=== PATIENT | female | born 1945 | race Caucasian/White ===

== ENCOUNTER 2016-09-26 18:04 | Inpatient (IN) ==
[2016-09-26] MEDS ORDERED: 0.9 % SODIUM CHLORIDE 1,000 ML IV ONE ×3 (18:28→20:55)
[2016-09-26] MEDS ORDERED: ACETAMINOPHEN 325 MG TABLET PO ONE (18:28)
--- NOTE | 2016-09-26 18:31 | Emergency Department Note ---
Fever HPI - General Chief Complaint: Fever Stated Complaint: fever, weakness Time Seen by Provider: 09/26/16 18:26 Source: patient, family Mode of arrival: ambulatory - History of Present Illness HPI Narrative: This previously healthy female developed some fever and chills short while ago after eating some carrot cake. She has no specific symptoms other than fever and chills. She denies cough bladder symptoms or abdominal pain. No nausea or diarrhea. MD complaint: fever, weakness Onset (ago): minute(s) Temperature Source: oral - Related Data Home Medications Medication Instructions Recorded Confirmed No Known Home Meds [No Known Home 09/26/16 09/26/16 Meds] Allergies Allergy/AdvReac Type Severity Reaction Status Date / Time Penicillins Allergy Verified 09/26/16 18:25 Review of Systems Constitutional: Reports: fever, chills Eyes: Denies: eye pain ENT ED: Denies: ear pain, throat pain Cardiovascular: Denies: chest pain Respiratory: Denies: cough, dyspnea Gastrointestinal: Denies: abdominal pain, nausea, vomiting, diarrhea Genitourinary: Denies: urgency, dysuria, frequency Musculoskeletal: Denies: back pain Integumentary: Denies: rash Fever PMH - Past Medical History Medical history: Reports: no medical history Physical Exam - General Limitations: no limitations General appearance: alert, in no apparent distress - Head Head exam: atraumatic, normocephalic - Eye Eye exam: Present: normal appearance - ENT ENT exam: normal exam - Neck Neck exam: Present: normal inspection - Chest Chest inspection: Present: normal inspection - Respiratory Respiratory exam: Present: other (scattered rhonchi) - Cardiovascular Cardiovascular exam: Present: regular rate, normal rhythm, normal heart sounds - Abdominal Exam Abdominal exam: Present: soft. Absent: distention, tenderness - Neurological Exam Neurological exam: Present: alert - Psychiatric Psychiatric exam: Present: normal affect, normal mood - Skin Skin exam: Present: warm, dry, intact Course Vital Signs Temperature 104.1 F H 09/26/16 18:05 Pulse Rate 104 H 09/26/16 18:05 Respiratory Rate 20 09/26/16 18:05 Pulse Oximetry (%) 95 09/26/16 18:05 Temperature 100.5 F H 09/26/16 20:48 Pulse Rate 88 09/26/16 19:52 Respiratory Rate 21 09/26/16 19:52 Blood Pressure 130/74 09/26/16 19:52 Pulse Oximetry (%) 93 09/26/16 19:52 Fever - MDM Narrative Medical decision making narrative: The patient received fluid we did blood cultures and she got Levaquin and Rocephin. With her potassium being 2.7 we will go ahead and admit her to the ICU for IV potassium and further treatment of her pneumonia. - Lab Data Lab results reviewed: Yes I reviewed the patient's lab results. Result diagrams: 09/26/16 18:28 09/26/16 20:10 Lab Results 09/26/16 09/26/16 09/26/16 Range/Units 18:28 18:28 18:40 WBC 16.2 H (4.5-11.0) K/mcL RBC 4.29 (4.00-5.20) M/mcL Hgb 13.0 (12.0-15.0) g/dL Hct 39.5 (36.0-48.0) % MCV 92.0 (80.0-100.0) fL MCH 30.3 (26.0-34.0) pg MCHC 33.0 (31.0-36.0) g/dL RDW 13.3 (11.5-14.5) % Plt Count 244 (140-440) K/mcL MPV 7.3 L (7.4-10.4) fL Gran % 91.0 H (38.0-78.0) % Lymph % (Auto) 3.2 L (15.5-49.0) % [place] % (Auto) 5.7 (1.0-12.0) % Eos % (Auto) 0 (0.0-7.0) % Baso % (Auto) 0.1 (0.0-2.0) % Gran # 14.7 H (1.8-8.0) K/mcL Lymph # 0.5 L (1.5-4.8) K/mcL [place] # 0.9 (0.1-0.9) K/mcL Eos # 0 (0.0-0.7) K/mcL Baso # 0 (0.0-0.3) K/mcL VBG Lactic Acid 0.9 (0.5-2.2) mmol/L Sodium Not Reportable Potassium Not Reportable Chloride Not Reportable Carbon Dioxide Not Reportable Anion Gap Not Reportable BUN Not Reportable Creatinine Not Reportable GFR Calculation Not Reportable Glucose TNP Calcium Not Reportable Total Bilirubin Not Reportable AST Not Reportable ALT Not Reportable Alkaline Phosphatase Not Reportable Total Protein Not Reportable Albumin Not Reportable Globulin Not Reportable Albumin/Globulin Ratio Not Reportable Urine Color Urine Appearance Urine pH (5.0-9.0) Ur Specific [place] (1.000-1.035) Urine Protein (NEG) mg/dL Urine Glucose (UA) (NEG) mg/dL Urine Ketones (NEG) mg/dL Urine Occult Blood (<0.03) mg/dL Urine Nitrate (NEG) Urine Bilirubin (NEG) mg/dL Urine Urobilinogen (NEG) mg/dL Ur Leukocyte Esterase (NEG) /uL Urine RBC (0-1) /hpf Urine WBC (0-4) /hpf Ur Squamous Epith Cells (0-4) /hpf Urine Bacteria (0) /hpf Urine Mucus (0) /hpf Ur Culture Indicated? 09/26/16 09/26/16 Range/Units 18:58 20:10 WBC (4.5-11.0) K/mcL RBC (4.00-5.20) M/mcL Hgb (12.0-15.0) g/dL Hct (36.0-48.0) % MCV (80.0-100.0) fL MCH (26.0-34.0) pg MCHC (31.0-36.0) g/dL RDW (11.5-14.5) % Plt Count (140-440) K/mcL MPV (7.4-10.4) fL Gran % (38.0-78.0) % Lymph % (Auto) (15.5-49.0) % [place] % (Auto) (1.0-12.0) % Eos % (Auto) (0.0-7.0) % Baso % (Auto) (0.0-2.0) % Gran # (1.8-8.0) K/mcL Lymph # (1.5-4.8) K/mcL [place] # (0.1-0.9) K/mcL Eos # (0.0-0.7) K/mcL Baso # (0.0-0.3) K/mcL VBG Lactic Acid (0.5-2.2) mmol/L Sodium 139 Potassium 2.7 L* Chloride 103 Carbon Dioxide 21 L Anion Gap 15.0 BUN 8 Creatinine 0.7 GFR Calculation 87 Glucose 107 H Calcium 7.5 L Total Bilirubin 0.5 AST 15 ALT 11 Alkaline Phosphatase 43 Total Protein 5.5 L Albumin 3.6 Globulin 1.9 L Albumin/Globulin Ratio 1.9 Urine Color Yellow Urine Appearance Clear Urine pH 7.0 (5.0-9.0) Ur Specific [place] 1.011 (1.000-1.035) Urine Protein Neg (NEG) mg/dL Urine Glucose (UA) Negative (NEG) mg/dL Urine Ketones 20 A (NEG) mg/dL Urine Occult Blood 0.03 A (<0.03) mg/dL Urine Nitrate Neg (NEG) Urine Bilirubin Neg (NEG) mg/dL Urine Urobilinogen Neg (NEG) mg/dL Ur Leukocyte Esterase 250 A (NEG) /uL Urine RBC 6 H (0-1) /hpf Urine WBC 5 H (0-4) /hpf Ur Squamous Epith Cells 0 (0-4) /hpf Urine Bacteria 0 (0) /hpf Urine Mucus Few (0) /hpf Ur Culture Indicated? Yes - Radiology Data Radiology results reviewed: Yes I reviewed the patient's radiology results. ( right lower lobe pneumonia) Disposition Clinical Impression: Community acquired pneumonia Disposition: Home, Self-Care Condition: Good Referrals: Gabe Rodriguez MD [Primary Care Provider] - Time of Disposition: 21:24
[2016-09-26 19:36] LABS: Basophils # (Auto) 0 K/mcL (0.0-0.3); Basophils % (Auto) 0.1 % (0.0-2.0); Eosinophils # (Auto) 0 K/mcL (0.0-0.7); Eosinophils % (Auto) 0 % (0.0-7.0); Lymphocytes # (Auto) 0.5 K/mcL (1.5-4.8); Lymphocytes % (Auto) 3.2 % (15.5-49.0); Mean Corpuscular Hemoglobin 30.3 pg (26.0-34.0); Monocytes # (Auto) 0.9 K/mcL (0.1-0.9); Monocytes % (Auto) 5.7 % (1.0-12.0); Platelet Count 244 K/mcL (140-440); RBC 4.29 M/mcL (4.00-5.20); Red Cell Distribution Width 13.3 % (11.5-14.5)
[2016-09-26 19:44] LABS: Appearance,Urine CLEAR; Bacteria,Urine 0 /hpf (0); Bilirubin,Urine NEG (NEG); Color,Urine YELLOW; Glucose,Urine (UA) NEGATIVE (NEG); Leukocyte Esterase,Urine 250 /uL (NEG); Mucus,Urine FEW /hpf (0); Nitrate,Urine NEG (NEG); Protein,Urine NEG (NEG); Specific Gravity,Urine 1.011 (1.000-1.035); Urine Blood 0.03 mg/dL (<0.03); Urine RBC 6 /hpf (0-1); Urine Squamous Epithelial Cell 0 /hpf (0-4); Urine WBC 5 /hpf (0-4); Urobilinogen,Urine NEG (NEG)
--- NOTE | 2016-09-26 20:48 | XRay Report ---
HISTORY: Reason for Exam:fever FINDINGS: There is a small alveolar infiltrate medially in the right lung base. This is a new finding since 07/02/14. The left lung is clear. There is no pleural effusion or evidence of adenopathy. The heart size is normal. IMPRESSION: Mild right lower lobe pneumonia Interpreted and Authenticated by: Jet Watson 09/26/16
[2016-09-26] MEDS ORDERED: LEVOFLOXACIN 500 MG/100 ML BAG IV ONE (20:49)
[2016-09-26 21:12] LABS: ALT/SGPT 11 U/l (0-40); Albumin 3.6 gm/dL (3.2-5.2); Albumin/Globulin Ratio 1.9 (1.0-2.3); Alkaline Phosphatase 43 U/L (39-117); Blood Urea Nitrogen 8 mg/dl (8-23)
[2016-09-26] MEDS ORDERED: cefTRIAXone 1 GM in DEXTROSE 5% IN WATER 50 ML IV ONE (21:12)
[2016-09-26] MEDS ORDERED: CEPHALEXIN 250 MG CAPSULE PO ONE (21:37)
[2016-09-26] MEDS ORDERED: CEPHALEXIN (PP) 250 MG CAPSULE (#4) PO SCH (21:45)
[2016-09-26] MEDS ORDERED: ACETAMINOPHEN 325 MG TABLET PO PRN ×2 (22:16→22:26)
[2016-09-26] MEDS ORDERED: oxyCODONE/APAP 5/325MG TABLET PO PRN ×2 (22:16→22:26)
[2016-09-26] MEDS ORDERED: ONDANSETRON 4 MG/2 ML VIAL IV PRN ×2 (22:16→22:26)
[2016-09-26] MEDS ORDERED: NALOXONE HCL 0.4 MG/ML VIAL IV PRN ×2 (22:16→22:26)
[2016-09-26] MEDS ORDERED: POTASSIUM CHLORIDE 20 MEQ PACKET PO ONE ×2 (22:25→22:26)
[2016-09-26] MEDS ORDERED: POTASSIUM CHLORIDE 40 MEQ in DEXTROSE 5% IN WATER 500 ML IV ONE (22:26)
[2016-09-26] MEDS ORDERED: 0.9 % SODIUM CHLORIDE 1,000 ML IV SCH (22:30)
[2016-09-26] MEDS ORDERED: AZITHROMYCIN 500 MG in DEXTROSE 5% IN WATER 250 ML IV SCH ×2 (22:30)
[2016-09-26] MEDS ORDERED: FAMOTIDINE/PF 20 MG/2 ML VIAL IV SCH (22:30)
[2016-09-26] MEDS ORDERED: cefTRIAXone 1 GM in DEXTROSE 5% IN WATER 50 ML IV SCH ×2 (22:30)
[2016-09-26] MEDS: 0.9 % SODIUM CHLORIDE 1,000 ML IV SCH (23:11)
[2016-09-26] MEDS ORDERED: POTASSIUM CHLORIDE 20 MEQ/10 ML VIAL IV ONE (23:33)
[2016-09-26] MEDS ORDERED: MAGNESIUM SULFATE 2 GM/50 ML BAG IV ONE (23:36)
--- NOTE | 2016-09-26 23:41 | Internal Med History&Physical ---
Medical - H&P: HPI Patient information: Note initiated : 09/26/16 at 11:37 pm Service Date, if different from initiated Date: [] Patient: Abby Guevara 71 y/o F admitted on 09/26/16 for fever, weakness. Chief Complaint: [] History of present illness: Ms. Guevara is a 71 year old female who presents to the ER with complaints of fever x 1 day. Patient reports being in her usual state of health, she was at the [facility], when she had a couple of bouts of cough, and developed fever with chills and weakness, and some shortness of breath. She was sick to her stomach.. She was not feeling well so she went home but her condition did not seem to improve, she rested for some time and her brought her to the ER for further evaluation. The patient denies any sick contacts in family but does have interactions with kids, notes has had her Pneumovax. In the ER she was febrile to temp of 104, Her WBC count was elevated, her K was noted to be low at 2.7, calcium 7.5, X ray chest shows right lower lobe pneumonia. She was admitted to the hospital for management of pna/ hypokalemia/ sepsis/ Review of systems: CONSTITUTIONAL: No weight loss, Present, fever chills and fatigue. HEENT: Eyes: No visual loss, blurred vision, double vision or yellow sclerae. Ears, Nose, Throat: No hearing loss, sneezing, congestion, runny nose or sore throat. SKIN: No rash or itching. CARDIOVASCULAR: No chest pain, chest pressure or chest discomfort. No palpitations or edema. RESPIRATORY: Dry cough present, mild shortness of breath present. GASTROINTESTINAL: Present nausea, No vomiting or diarrhea or constipation. No abdominal pain or blood in stools No Sammie. GENITOURINARY: Denies Burning on urination. Blood in urine, or foul smelling urine NEUROLOGICAL: No headache, dizziness, syncope, paralysis, tremors, numbness or tingling in the extremities. No change in bowel or bladder control. MUSCULOSKELETAL: No muscle, back pain, joint pain or stiffness. HEMATOLOGIC: No bleeding or bruising. No enlarged nodes PSYCHIATRIC: No depression or anxiety. ENDOCRINOLOGIC: No reports of sweating, cold or heat intolerance. No polyuria or polydipsia. ALLERGIES: No hives, eczema or rhinitis. Skin: No rash, no jaundice, cyanosis or pallor. Medical - H&P: PMH Medical history: Medical History Community acquired pneumonia (Acute) Benign essential hypertension (Chronic) Contusion (Chronic) Surgical history: Past Surgical History CTS surgery right hand Family history: reviewed and not pertinent Social history: non smoker, no etoh, no drugs lives with . Medical - H&P: Meds Home Medications Medication Instructions Recorded Confirmed Type No Known Home Meds [No Known Home 09/26/16 09/26/16 History Meds] Allergies Allergy/AdvReac Type Severity Reaction Status Date / Time Penicillins Allergy Verified 09/26/16 18:25 Medical - H&P: Exam - Constitutional Vitals: Temp Pulse Resp BP Pulse Ox 99.3 F 88 12 122/80 95 09/26/16 22:28 09/26/16 19:52 09/26/16 22:28 09/26/16 22:28 09/26/16 22:28 Exam: GENERAL: The patient is a well-developed, well-nourished in no apparent distress. Is alert and oriented x3. VITAL SIGNS: Reviewed and as noted elsewhere. HEENT: Head is normocephalic and atraumatic. Extraocular muscles are intact. Pupils are equal, round, and reactive to light. Nares appeared normal. Mouth appears any without lesions. Mucous membranes are dry NECK: Normal to inspection, Supple, No lymphadenopathy or thyromegaly. LUNGS: Air entry equal on both sides, no wheezing,, crackles noted on the right lung base. HEART: Regular rate and rhythm normal, S1 and S2 heard, no Gallop, S3 or Rub Noted, No Gross murmur heard. ABDOMEN: Soft, nontender, and nondistended. Positive bowel sounds. No hepatosplenomegaly was noted. EXTREMITIES: No cyanosis, clubbing, rash, lesions or edema. NEUROLOGIC: Cranial nerves II through XII are grossly intact. Motor and Sensory System Grossly Intact PSYCHIATRIC: Normal affect, Normal Mood. Appropriate Behavior. SKIN: No ulceration or wounds noted, No jaundice, No rash noted. Medical - H&P: Reslt - Labs CBC & Chem 7: 09/26/16 18:28 09/26/16 20:10 Medical - H&P: A/P - Narrative A/P Narrative: A/P Community Acquired Pneumonia: Treat with IV rocephin/ zithromax, blood cultures done, does not have cough with sputum for sputum cultures. Sepsis: Elevated wbc, pna, tachycardia, fever, Pt treated aggressively with IV ABX and IV fluids, lactate is normal on presentation. monitor Hypokalemia: Etiology: she takes no meds no supplements, no decline in oral intake, no diarrhea reported. Will replace for now, check urine K level. Hypomagnesemia: Noted on labs 1.5, replace for now. Low Calcium: monitor for now on tele. Await ekg, check vit D levels. Multiple electrolyte abnormalities could be due to sepsis, but could also be some malabsorbtion state. monitor for now. DVT : Hep sq Diet Regular Code full code.
[2016-09-27] MEDS: FAMOTIDINE/PF 20 MG/2 ML VIAL IV SCH ×3 (00:31→21:37)
[2016-09-27] MEDS ORDERED: MAGNESIUM SULFATE 2 GM/50 ML BAG IV ONE (00:34)
[2016-09-27 05:10] LABS: Basophils # (Auto) 0 K/mcL (0.0-0.3); Basophils % (Auto) 0.1 % (0.0-2.0); Eosinophils # (Auto) 0 K/mcL (0.0-0.7); Eosinophils % (Auto) 0 % (0.0-7.0); Granulocytes % (Auto) 84.7 % (38.0-78.0); Lymphocytes # (Auto) 1.4 K/mcL (1.5-4.8); Lymphocytes % (Auto) 9.5 % (15.5-49.0); Mean Cell Volume 92.3 fL (80.0-100.0); Mean Corpuscular HGB Conc 33.3 g/dL (31.0-36.0); Mean Corpuscular Hemoglobin 30.8 pg (26.0-34.0); Monocytes # (Auto) 0.9 K/mcL (0.1-0.9); Monocytes % (Auto) 5.7 % (1.0-12.0); Platelet Count 175 K/mcL (140-440); Red Cell Distribution Width 13.6 % (11.5-14.5)
[2016-09-27 05:26] LABS: ALT/SGPT 11 U/l (0-40); Albumin 3.1 gm/dL (3.2-5.2); Albumin/Globulin Ratio 1.5 (1.0-2.3); Alkaline Phosphatase 41 U/L (39-117); Bilirubin,Direct < 0.2 mg/dL (0.0-0.3); Blood Urea Nitrogen 7 mg/dl (8-23); Gamma Glutamyl Transpeptidase 9 U/L (5-36); Magnesium 2.6 mg/dL (1.6-2.5); Uric Acid 1.7 mg/dL (2.5-8.0)
[2016-09-27 05:41] LABS: Vitamin D 25 Hydroxy 21.22 ng/mL (>=30)
[2016-09-27 08:48] LABS: ALT/SGPT 10 U/l (0-40); Albumin 3.1 gm/dL (3.2-5.2); Albumin/Globulin Ratio 1.4 (1.0-2.3); Alkaline Phosphatase 42 U/L (39-117); Bilirubin,Direct < 0.2 mg/dL (0.0-0.3); Blood Urea Nitrogen 6 mg/dl (8-23); Gamma Glutamyl Transpeptidase 10 U/L (5-36); Magnesium 2.2 mg/dL (1.6-2.5); Uric Acid 1.6 mg/dL (2.5-8.0)
[2016-09-27] MEDS ORDERED: HEPARIN 5,000 UNIT/ML VIAL SQ SCH ×2 (09:00)
[2016-09-27] MEDS ORDERED: NEUTRA PHOS 1 PACKET PO SCH (09:15)
[2016-09-27] MEDS ORDERED: 0.9 % SODIUM CHLORIDE 1,000 ML IV SCH (09:25)
[2016-09-27] MEDS ORDERED: ONDANSETRON 4 MG/2 ML VIAL IV PRN (09:25)
[2016-09-27] MEDS ORDERED: ACETAMINOPHEN 325 MG TABLET PO PRN (09:25)
[2016-09-27] MEDS ORDERED: oxyCODONE/APAP 5/325MG TABLET PO PRN (09:25)
[2016-09-27] MEDS ORDERED: NALOXONE HCL 0.4 MG/ML VIAL IV PRN (09:25)
[2016-09-27] MEDS: NEUTRA PHOS 1 PACKET PO SCH ×2 (10:17→21:37)
[2016-09-27] MEDS: 0.9 % SODIUM CHLORIDE 1,000 ML IV SCH (11:29)
--- NOTE | 2016-09-27 12:58 | Internal Med Progress Note ---
Medical - PN: Subj Patient information: Note initiated : 09/27/16 at 12:55 pm Service Date, if different from initiated Date: [] Patient: Abby Guevara 71 y/o F admitted on 09/26/16 for fever, weakness. Chief Complaint: [] Interval history: Ms. Guevara is a 71 year old female who presents to the ER with complaints of fever x 1 day. Patient reports being in her usual state of health, she was at the [facility], when she had a couple of bouts of cough, and developed fever with chills and weakness, and some shortness of breath. She was sick to her stomach.. She was not feeling well so she went home but her condition did not seem to improve, she rested for some time and her brought her to the ER for further evaluation. The patient denies any sick contacts in family but does have interactions with kids, notes has had her Pneumovax. In the ER she was febrile to temp of 104, Her WBC count was elevated, her K was noted to be low at 2.7, calcium 7.5, X ray chest shows right lower lobe pneumonia. She was admitted to the hospital for management of pna/ hypokalemia/ sepsis/ 09/27: Pt seen examined, sitting in chair, doing much better, no acute overnight events, she notes desire to be discharged, explained need to stay in the hospital, pt agreed to stay. patients lab work reviewed, leucocytosis improving, electrolyte abormalities resolving. Low phos noted replaced Pt notes she did not eat or drink well due to being busy organizing the [facility], and that is likely the reason for her problems. raheem d/c vern, d/c tele and xfer to regular floor microbiology is still pending. Pertinent ROS: Denies headache, dizziness Denies chest pain, palpitations Denies cough or shortness of breath Denies abdominal pain, nausea or vomiting. - Constitutional Vitals: Vital Signs Temp Pulse Resp BP Pulse Ox 98.2 F 79 20 122/82 96 09/27/16 12:00 09/27/16 07:55 09/27/16 12:00 09/27/16 12:00 09/27/16 12:00 Period Temp Pulse Resp BP Sys/Maya Pulse Ox Last 24 Hr 98.2 F-99.4 F 67-82 12-20 116-130/62-82 95-98 Intake and Output 09/26/16 09/27/16 09/27/16 21:59 05:59 13:59 Intake Total 570 / 1670 360 / 360 Output Total 1200 / 1200 1950 / 1950 Balance -630 / 470 -1590 / -1590 Intake & Output: Intake & Output 09/26/16 09/27/16 09/27/16 21:59 05:59 13:59 Intake Total 570 / 1670 360 / 360 Output Total 1200 / 1200 1950 / 1950 Balance -630 / 470 -1590 / -1590 Intake: IV 250 / 250 Zithromax 500 mg In 250 / 250 Dextrose 5% in Water 250 ml @ 250 mls/hr IV Q24H [facility] Rx#:[id number] Oral 320 / 320 360 / 360 Output: Urine Catheter Amount 1200 / 1200 1450 / 1450 Void Amount 500 / 500 Other: Meal Lunch Percent of Meal Consumed 100% Feeding Ability Independent # Voids 1 # Bowel Movements 1 Exam: Constitutional; Afebrile, cooperative, alert, not in distress. Eyes- No icterus, , No periorbital swelling Ears- Ext ear normal, hearing normal to conversation. Neck- Midline trachea, supple Respiratory system: Air Entry equal on both sides, No wheezing, no rhonchi. right lower lobe mild crackles noted. CVS- Rate rhythm regular, S1,S2 heard, no gallop, no rub. Abdomen- Soft nontender abdomen, no organomegaly, no tenderness, no guarding or rigidity, WIRE BENDER HAND- AOOx3, moving all extremities, no gross focal deficit noted. Medical - PN: Obj Da - Labs CBC & Chem 7: 09/27/16 03:29 09/27/16 07:32 Labs: Abnormal Lab Results 09/27/16 09/27/16 09/27/16 07:32 03:29 03:29 WBC RBC Hgb Hct MPV Gran % Lymph % (Auto) Gran # Lymph # Carbon Dioxide 21 L BUN 6 L 7 L Glucose 168 H Uric Acid 1.6 L 1.7 L Calcium 7.8 L 7.8 L Phosphorus 1.3 L 2.3 L Magnesium 2.6 H Total Protein 5.3 L 5.2 L Albumin 3.1 L 3.1 L Globulin 2.1 L 25-OH Vitamin D Total 21.22 L 09/27/16 09/26/16 03:29 22:36 WBC 15.1 H RBC 3.60 L Hgb 11.1 L Hct 33.2 L MPV 7.1 L Gran % 84.7 H Lymph % (Auto) 9.5 L Gran # 12.8 H Lymph # 1.4 L Carbon Dioxide BUN Glucose Uric Acid Calcium Phosphorus Magnesium 1.5 L Total Protein Albumin Globulin 25-OH Vitamin D Total Meds: Medications Acetaminophen (Tylenol) 650 mg PO Q6HP PRN PRN Reason: PAIN/FEVER > 101 Famotidine (Pepcid) 20 mg IV Q12 [facility] Heparin Sodium (Porcine) (Heparin) 5,000 unit SQ Q12 [facility] Azithromycin 500 mg/ Dextrose 250 mls @ 250 mls/hr IV DAILY [facility] Stop: 09/28/16 09:59 Sodium Chloride (Sodium Chloride 0.9%) 1,000 mls @ 100 mls/hr IV .Q10H [facility] Ceftriaxone Sodium 1 gm/ (Dextrose) 50 mls @ 100 mls/hr IV DAILY@1000 [facility] Naloxone HCl (Narcan) 0.1 mg IV Q2MIN PRN PRN Reason: Opiate Reversal Ondansetron HCl (Zofran) 4 mg IV Q4HP PRN PRN Reason: Nausea And Vomiting Oxycodone/Acetaminophen (Percocet 5-325 Mg) 1 tab PO Q4HP PRN PRN Reason: Pain Potassium/Phosphorus/Sodium (Neutra Phos) 2 packet PO BID [facility] Last Admin: 09/27/16 10:17 Dose: 2 packet Medical - PN: A/P - Time Spent With Patient Total time spent is greater than 50% in coordination of care (as documented) at patient's floor/unit and/or counseling patient: - Narrative A/P Narrative: Community Acquired Pneumonia: Treat with IV rocephin/ zithromax, blood cultures done, does not have cough with sputum for sputum cultures. Micro neg so far, Sepsis: leucocytosis improving, no longer febrile, IV abx for now, seems to clinically be improving. Hypokalemia: Etiology: given Urine K of 40, not sure of lack of PO intake is the only reason for low K, Mg and Phos, will monitor for now. presently K is normal Hypophosphatemia: replace orally. Hypomagnesemia: replaced. . Low Calcium: monitor for now on tele. vit d borderline low, morgan ca is 8.7, clinically asymptomatic DVT : Hep sq Diet Regular Code full code. x miller to med surg, anticipate d/c home if microbiology is neg. Medical - PN: Qual - VTE Deep Vein Thrombosis/Pulmonary Embolism Present on Admission: No
[2016-09-27] MEDS: cefTRIAXone 1 GM in DEXTROSE 5% IN WATER 50 ML IV SCH (13:00)
[2016-09-27] MEDS ORDERED: cefTRIAXone 1 GM in DEXTROSE 5% IN WATER 50 ML IV SCH (13:00)
[2016-09-27] MEDS ORDERED: AZITHROMYCIN 500 MG in DEXTROSE 5% IN WATER 250 ML IV SCH ×2 (14:00)
[2016-09-27] MEDS: AZITHROMYCIN 250 MG TABLET PO SCH (15:33)
[2016-09-27] MEDS: HEPARIN 5,000 UNIT/ML VIAL SQ SCH (21:37)
[2016-09-28 06:11] LABS: Basophils # (Auto) 0 K/mcL (0.0-0.3); Basophils % (Auto) 0.3 % (0.0-2.0); Eosinophils # (Auto) 0.1 K/mcL (0.0-0.7); Eosinophils % (Auto) 1.2 % (0.0-7.0); Granulocytes % (Auto) 77.1 % (38.0-78.0); Lymphocytes # (Auto) 1.6 K/mcL (1.5-4.8); Lymphocytes % (Auto) 16.2 % (15.5-49.0); Mean Cell Volume 92.4 fL (80.0-100.0); Mean Corpuscular Hemoglobin 30.4 pg (26.0-34.0); Monocytes # (Auto) 0.5 K/mcL (0.1-0.9); Monocytes % (Auto) 5.2 % (1.0-12.0); Platelet Count 256 K/mcL (140-440); RBC 4.08 M/mcL (4.00-5.20)
[2016-09-28 06:27] LABS: ALT/SGPT 12 U/l (0-40); Albumin 3.7 gm/dL (3.2-5.2); Albumin/Globulin Ratio 1.4 (1.0-2.3); Alkaline Phosphatase 54 U/L (39-117); Bilirubin,Direct < 0.2 mg/dL (0.0-0.3); Blood Urea Nitrogen 8 mg/dl (8-23); Gamma Glutamyl Transpeptidase 10 U/L (5-36); Magnesium 2.1 mg/dL (1.6-2.5); Uric Acid 2.6 mg/dL (2.5-8.0)
[2016-09-28] MEDS: NEUTRA PHOS 1 PACKET PO SCH (08:14)
[2016-09-28] MEDS: FAMOTIDINE/PF 20 MG/2 ML VIAL IV SCH (08:17)
[2016-09-28] MEDS: HEPARIN 5,000 UNIT/ML VIAL SQ SCH ×2 (08:17→20:29)
[2016-09-28] MEDS: AZITHROMYCIN 250 MG TABLET PO SCH (10:30)
[2016-09-28] MEDS: cefTRIAXone 1 GM in DEXTROSE 5% IN WATER 50 ML IV SCH (10:30)
--- NOTE | 2016-09-28 12:56 | Internal Med Progress Note ---
Medical - PN: Subj Patient information: Note initiated : 09/28/16 at 12:52 pm Service Date, if different from initiated Date: [] Patient: Abby Guevara 71 y/o F admitted on 09/26/16 for fever, weakness. Chief Complaint: [] Interval history: Ms. Guevara is a 71 year old female who presents to the ER with complaints of fever x 1 day. Patient reports being in her usual state of health, she was at the [facility], when she had a couple of bouts of cough, and developed fever with chills and weakness, and some shortness of breath. She was sick to her stomach.. She was not feeling well so she went home but her condition did not seem to improve, she rested for some time and her brought her to the ER for further evaluation. The patient denies any sick contacts in family but does have interactions with kids, notes has had her Pneumovax. In the ER she was febrile to temp of 104, Her WBC count was elevated, her K was noted to be low at 2.7, calcium 7.5, X ray chest shows right lower lobe pneumonia. She was admitted to the hospital for management of pna/ hypokalemia/ sepsis/ 09/27: Pt seen examined, sitting in chair, doing much better, no acute overnight events, she notes desire to be discharged, explained need to stay in the hospital, pt agreed to stay. patients lab work reviewed, leucocytosis improving, electrolyte abormalities resolving. Low phos noted replaced Pt notes she did not eat or drink well due to being busy organizing the [facility], and that is likely the reason for her problems. will d/c vern, d/c tele and xfer to regular floor microbiology is still pending. 09/28 Pt seen examined, no acute overnight events, ambulating up and down the [address]. The patient since this AM has had 8 episodes of watery diarrhea. Cdiff tested and is negative. The patient microbiology is negative blood cultures, gram neg in urine, pt had no urinary sympotms. tolerating po well. Pertinent ROS: Denies headache, dizziness Denies chest pain, palpitations Denies cough or shortness of breath Denies abdominal pain, nausea or vomiting. Diarrhea present. - Constitutional Vitals: Vital Signs Temp Pulse Resp BP Pulse Ox 98.2 F 71 20 138/82 94 09/28/16 07:37 09/28/16 07:37 09/28/16 07:37 09/28/16 07:37 09/28/16 07:37 Period Temp Pulse Resp BP Sys/Maya Pulse Ox Last 24 Hr 97.3 F-98.9 F 71-90 20-22 127-152/75-84 20-97 Intake and Output 09/27/16 09/28/16 09/28/16 21:59 05:59 13:59 Intake Total 620 / 620 150 / 150 Output Total 500 / 500 Balance 120 / 120 150 / 150 Weight 127 lb Intake & Output: Intake & Output 09/27/16 09/28/16 09/28/16 21:59 05:59 13:59 Intake Total 620 / 620 150 / 150 Output Total 500 / 500 Balance 120 / 120 150 / 150 Weight 127 lb Intake: IV 0 / 0 Zithromax 500 mg In 0 / 0 Dextrose 5% in Water 250 ml @ 250 mls/hr IV DAILY [facility] Rx#:[id number] Oral 620 / 620 150 / 150 Output: Void Amount 500 / 500 Other: # Voids 2 1 # Bowel Movements 1 Exam: Constitutional; Afebrile, cooperative, alert, not in distress. Eyes- No icterus, , No periorbital swelling Ears- Ext ear normal, hearing normal to conversation. Neck- Midline trachea, supple Respiratory system: Air Entry equal on both sides, No crackles or wheezing, no rhonchi. CVS- Rate rhythm regular, S1,S2 heard, no gallop, no rub. Abdomen- Soft nontender abdomen, no organomegaly, no tenderness, no guarding or rigidity, AUDIO TAPE LIBRARIAN- AOOx3, moving all extremities, no gross focal deficit noted. Medical - PN: Obj Da - Labs CBC & Chem 7: 09/28/16 04:40 09/28/16 04:40 Labs: Abnormal Lab Results 09/28/16 09/27/16 09/27/16 04:40 07:32 03:29 WBC RBC Hgb Hct MPV Gran % Lymph % (Auto) Gran # Lymph # Carbon Dioxide 21 L BUN 6 L Glucose 168 H Uric Acid 1.6 L Calcium 7.8 L Phosphorus 2.6 L 1.3 L Magnesium Total Protein 5.3 L Albumin 3.1 L Globulin 25-OH Vitamin D Total 21.22 L 09/27/16 09/27/16 09/26/16 03:29 03:29 22:36 WBC 15.1 H RBC 3.60 L Hgb 11.1 L Hct 33.2 L MPV 7.1 L Gran % 84.7 H Lymph % (Auto) 9.5 L Gran # 12.8 H Lymph # 1.4 L Carbon Dioxide BUN 7 L Glucose Uric Acid 1.7 L Calcium 7.8 L Phosphorus 2.3 L Magnesium 2.6 H 1.5 L Total Protein 5.2 L Albumin 3.1 L Globulin 2.1 L 25-OH Vitamin D Total Meds: Medications Acetaminophen (Tylenol) 650 mg PO Q6HP PRN PRN Reason: PAIN/FEVER > 101 Heparin Sodium (Porcine) (Heparin) 5,000 unit SQ Q12 [facility] Last Admin: 09/28/16 08:17 Dose: 5,000 unit Lactobacillus Rhamnosus (Culturelle) 1 cap PO BID [facility] Naloxone HCl (Narcan) 0.1 mg IV Q2MIN PRN PRN Reason: Opiate Reversal Ondansetron HCl (Zofran) 4 mg IV Q4HP PRN PRN Reason: Nausea And Vomiting Medical - PN: A/P - Time Spent With Patient Total time spent is greater than 50% in coordination of care (as documented) at patient's floor/unit and/or counseling patient: - Narrative A/P Narrative: Community Acquired Pneumonia: clinically improving, cultures pending UTI: Gram neg bacillus in Urine, on antibiotics, sensitivities pending. Sepsis: resolved Diarrhea: Likely related to medications, stop antibiotics zithromax and rocephin , start levoquin in AM, start lactobacillus. DVT : Hep sq Diet Regular Code full code. Pt was ready for d/c but given her 8 episodes of diarrhea since this AM, will observe for additional day, ensure that she remains stable. Plan for D/C tomorrow. . Medical - PN: Qual - VTE Deep Vein Thrombosis/Pulmonary Embolism Present on Admission: No
[2016-09-28] MEDS: LACTOBACILLUS 1 CAPSULE PO SCH ×2 (14:13→20:29)
[2016-09-29 07:23] LABS: Basophils # (Auto) 0 K/mcL (0.0-0.3); Basophils % (Auto) 0.5 % (0.0-2.0); Eosinophils # (Auto) 0.2 K/mcL (0.0-0.7); Eosinophils % (Auto) 3.9 % (0.0-7.0); Granulocytes % (Auto) 55.3 % (38.0-78.0); Lymphocytes # (Auto) 1.5 K/mcL (1.5-4.8); Lymphocytes % (Auto) 31.7 % (15.5-49.0); Mean Corpuscular HGB Conc 32.9 g/dL (31.0-36.0); Mean Corpuscular Hemoglobin 30.3 pg (26.0-34.0); Monocytes # (Auto) 0.4 K/mcL (0.1-0.9); Monocytes % (Auto) 8.6 % (1.0-12.0); Platelet Count 263 K/mcL (140-440); Red Cell Distribution Width 13.2 % (11.5-14.5)
[2016-09-29 07:48] LABS: ALT/SGPT 11 U/l (0-40); Albumin 3.5 gm/dL (3.2-5.2); Albumin/Globulin Ratio 1.3 (1.0-2.3); Alkaline Phosphatase 51 U/L (39-117); Bilirubin,Direct < 0.2 mg/dL (0.0-0.3); Blood Urea Nitrogen 10 mg/dl (8-23); Gamma Glutamyl Transpeptidase 9 U/L (5-36); Uric Acid 3.1 mg/dL (2.5-8.0)
--- NOTE | 2016-09-29 07:55 | Discharge Summary ---
Medical - DS: Prov Patient information: Note initiated : 09/29/16 at 7:52 am Service Date, if different from initiated Date: [] Patient: Abby Guevara a 71 y/o F admitted on 09/26/16 for fever, weakness. Chief Complaint: [] Date of admission: 09/26/16 22:27 Discharge date: 09/29/16 Primary care physician: [f_Reg Prim Care Provider] Attending physician on admission: Wilmer Reyna Discharging clinician: Wilmer Reyna Medical - DS: Meds - Discharge Medications Prescriptions: Levofloxacin [Levaquin] 750 mg PO DAILY #5 tablet Active and Home Medications: Home Medications No Known Home Meds [No Known Home Meds] 09/26/16 [History Confirmed 09/27/16 Last Taken Unknown] Medical - DS: Hosp Hospital course: Mr. Guevara is a 71 year old female who presented to the ER with fever and chills x 1 day, Noted to have pna on X ray, elevated wbc count and abnl Ua Admitted to the hospital with sepsis, Pneumonia and UTI Pneumonia: Community acquired pneumonia, Right lower lobe, Initially treated with rocephin and zithromax, however she developed diarrhea to same, and therefore at discrge we will be discharging her on levofloxacin. The patient wbc count today is back to normal, she is afebrile x > 24 hrs, and ambulatory, tolerating po well. Advised to use OTC probiotics while on antibiotics. Blood cultures were negative. Dairrhea: noted on day 2 of hospitalization, severe 10 times, resolved with cessation of ABX I think zithromax was the cultpril, Cdiff checked was negative. Patient diarrhea resolved yesterday evening. UTI: Asymptomatic bacteruia noted, gram neg, did get rocephin in the ER, and will be on levofloxacin, she does not have UTI symptoms, advised good hydration. Electrolyte abnormalities, Low mg, low K and low Ca no judy on admission, borderline low vit d, pt admits to have poor oral intake over last few days as she was working hard on the [place]. Advised to keep self hydrated. Discharge diagnosis: Pneuomonia, UTI - Time Spent with Patient Total time spent providing and/or coordinating discharge services: Less than 30 minutes Medical - DS: Exam - Constitutional Vitals: Vital Signs Temp Pulse Resp BP Pulse Ox 09/29/16 07:22 95 09/29/16 06:55 98.9 F 18 141/78 96 09/29/16 04:00 97.9 F 57 L 22 147/78 97 09/29/16 00:00 97.9 F 66 22 148/81 96 09/28/16 19:47 97.9 F 92 H 24 157/88 98 09/28/16 16:00 98 F 72 20 135/78 94 09/28/16 12:00 98.4 F 75 20 140/87 97 Intake and Output 09/28/16 09/29/16 09/29/16 21:59 05:59 13:59 Intake Total 600 / 600 2099 Balance 600 / 600 2099 Intake: Oral 600 / 600 2099 Other: Meal Dinner Percent of Meal Consumed 100% Feeding Ability Independent # Voids 4 1 # Bowel Movements 1 Weight 127 lb Additional comments: Constitutional; Afebrile, cooperative, alert, not in distress. Eyes- No icterus, , No periorbital swelling Ears- Ext ear normal, hearing normal to conversation. Neck- Midline trachea, supple Respiratory system: Air Entry equal on both sides, No crackles or wheezing, no rhonchi. CVS- Rate rhythm regular, S1,S2 heard, no gallop, no rub. Abdomen- Soft nontender abdomen, no organomegaly, no tenderness, no guarding or rigidity, [employer]- AOOx3, moving all extremities, no gross focal deficit noted. Medical - DS: Data Labs on day of discharge: Labs from last 24 hours 09/29/16 09/29/16 04:55 04:55 WBC 4.7 RBC 3.90 L Hgb 11.8 L Hct 35.9 L MCV 92.0 MCH 30.3 MCHC 32.9 RDW 13.2 Plt Count 263 MPV 7.2 L Gran % 55.3 Lymph % (Auto) 31.7 Graham % (Auto) 8.6 Eos % (Auto) 3.9 Baso % (Auto) 0.5 Gran # 2.6 Lymph # 1.5 Graham # 0.4 Eos # 0.2 Baso # 0 Sodium 144 Potassium 4.0 Chloride 106 Carbon Dioxide 27 Anion Gap 11.0 BUN 10 Creatinine 0.8 GFR Calculation 74 Glucose 85 Uric Acid 3.1 Calcium 9.1 Phosphorus 3.4 Magnesium 2.0 Total Bilirubin 0.3 Direct Bilirubin < 0.2 GGT 9 AST 12 ALT 11 Alkaline Phosphatase 51 Lactate Dehydrogenase 192 Total Protein 6.1 Albumin 3.5 Globulin 2.6 Albumin/Globulin Ratio 1.3 Triglycerides 102 Medical - DS: A/P - Patient/Caregiver Discharge Instructions Activity: increase activity as tolerated Diet: Regular Diet Additional Instructions: Take antibiotics as prescribed Take probiotics while on antibiotics Follow up with your PCP in 7-14 days Go to the ER if fever, chest pain, or shortness of breath, Keep self well hydrated. - Follow up Plan Follow up with: Gabe Rodriguez MD [Primary Care Provider] - Disposition: Home, Self-Care Prognosis: Good Rehab Potential: Good I certify that the patient requires SNF services: No Overall status at discharge: patient is back to baseline Medical - DS: Qual - VTE Deep Vein Thrombosis/Pulmonary Embolism Present on Admission: No
[2016-09-29] MEDS: HEPARIN 5,000 UNIT/ML VIAL SQ SCH (08:37)
[2016-09-29] MEDS: LACTOBACILLUS 1 CAPSULE PO SCH (08:37)
[2016-09-29] MEDS ORDERED: LEVOFLOXACIN 750 MG/150 ML BAG IV SCH (09:00)
== END 2016-09-29 11:15 | disposition home or self-care (01) | DRG 871 ==
LOC: ED 18:04 → ICU 22:27 → MEDSUR 09-27 16:02
PROVIDERS: ADMIT Internal Medicine; ATTEND Internal Medicine

== ENCOUNTER 2024-06-19 16:02 | Observation (INO) ==
[2024-06-19] MEDS ORDERED: IOPAMIDOL 100 ML BOTTLE IV ONE (16:03)
[2024-06-19 18:43] LABS: Basophils # (Auto) 0.02 K/mcL (0.00-0.30); Basophils % (Auto) 0.2 % (0.0-2.0); Eosinophils # (Auto) 0.02 K/mcL (0.00-0.70); Eosinophils % (Auto) 0.2 % (0.0-7.0); Hematocrit 40.8 % (34.1-44.9); Hemoglobin 13.5 g/dL (11.2-15.7); Lymphocytes # (Auto) 1.08 K/mcL (1.50-4.80); Lymphocytes % (Auto) 11.9 % (15.5-49.0); Mean Cell Volume 91.9 fL (80.0-100.0); Mean Corpuscular HGB Conc 33.1 g/dL (31.0-36.0); Mean Platelet Volume 8.6 fL (8.8-12.5); Monocytes # (Auto) 0.56 K/mcL (0.10-0.90); Monocytes % (Auto) 6.2 % (1.0-12.0); Neutrophils % (Auto) 81.4 % (38.0-78.0); Platelet Count 188 K/mcL (140-440); RBC 4.44 M/mcL (3.59-5.38); WBC 9.1 K/mcL (4.5-11.0)
[2024-06-19 19:09] LABS: ALT/SGPT 36 U/L (<40); AST/SGOT 56 U/L (<32); Albumin 4.3 gm/dL (3.2-5.2); Albumin/Globulin Ratio 1.7 (1.0-2.3); Alkaline Phosphatase 59 U/L (39-117); Bilirubin,Total 0.4 mg/dL (0.1-1.0); Blood Urea Nitrogen 19 mg/dL (8-23); Calcium 9.3 mg/dL (8.6-10.4); Carbon Dioxide 29 mmol/L (22-30); Chloride 98 mmol/L (96-108); Globulin 2.5 gm/dL (2.2-3.7); Glomerular Filtration Rate 70; Glucose 107 mg/dL (70-105); Potassium 4.1 mmol/L (3.3-5.1); Sodium 135 mmol/L (133-145)
[2024-06-19 19:46] LABS: Appearance,Urine Clear (Clear); Bilirubin,Urine Negative (Negative); Color,Urine Yellow; Glucose,Urine (UA) Negative (Negative); Ketones,Urine Trace mg/dL (Negative); Leukocyte Esterase,Urine Negative /uL (Negative); Nitrate,Urine Negative (Negative); PH,Urine 5.5 (5.0-9.0); Protein,Urine Negative (Negative); Urine Blood Moderate ery/mcL (Negative); Urine RBC 40 /hpf (0-3); Urine Squamous Epithelial Cell 0 /hpf (0-4); Urine WBC 2 /hpf (0-4); Urobilinogen,Urine Normal
[2024-06-19] MEDS: 0.9 % SODIUM CHLORIDE 250 ML IV SCH (20:17)
[2024-06-19] MEDS ORDERED: ACETAMINOPHEN 325 MG TABLET PO PRN (20:36)
[2024-06-19] MEDS ORDERED: CYCLOBENZAPRINE 10 MG TABLET PO PRN (20:36)
[2024-06-19] MEDS ORDERED: ONDANSETRON 4 MG/2 ML VIAL IV PRN (20:36)
[2024-06-19 21:21] LABS: Basophils # (Auto) 0.04 K/mcL (0.00-0.30); Basophils % (Auto) 0.4 % (0.0-2.0); Eosinophils # (Auto) 0.03 K/mcL (0.00-0.70); Eosinophils % (Auto) 0.3 % (0.0-7.0); Hematocrit 41.2 % (34.1-44.9); Hemoglobin 13.3 g/dL (11.2-15.7); Lymphocytes # (Auto) 1.72 K/mcL (1.50-4.80); Lymphocytes % (Auto) 18.7 % (15.5-49.0); Mean Cell Volume 94.1 fL (80.0-100.0); Mean Corpuscular HGB Conc 32.3 g/dL (31.0-36.0); Mean Platelet Volume 8.8 fL (8.8-12.5); Monocytes # (Auto) 0.63 K/mcL (0.10-0.90); Monocytes % (Auto) 6.8 % (1.0-12.0); Neutrophils % (Auto) 73.6 % (38.0-78.0); Platelet Count 201 K/mcL (140-440); RBC 4.38 M/mcL (3.59-5.38); Red Cell Distribution Width 12.2 % (11.5-14.5); WBC 9.2 K/mcL (4.5-11.0)
[2024-06-19] MEDS: 0.9 % SODIUM CHLORIDE 1,000 ML IV SCH (21:50)
[2024-06-20 06:10] LABS: Basophils # (Auto) 0.04 K/mcL (0.00-0.30); Basophils % (Auto) 0.7 % (0.0-2.0); Eosinophils # (Auto) 0.07 K/mcL (0.00-0.70); Eosinophils % (Auto) 1.2 % (0.0-7.0); Hematocrit 39.3 % (34.1-44.9); Hemoglobin 12.8 g/dL (11.2-15.7); Mean Cell Volume 92.5 fL (80.0-100.0); Mean Corpuscular HGB Conc 32.6 g/dL (31.0-36.0); Mean Platelet Volume 8.6 fL (8.8-12.5); Monocytes # (Auto) 0.59 K/mcL (0.10-0.90); Monocytes % (Auto) 10.5 % (1.0-12.0); Neutrophils % (Auto) 64.6 % (38.0-78.0); Platelet Count 174 K/mcL (140-440); RBC 4.25 M/mcL (3.59-5.38); Red Cell Distribution Width 12.1 % (11.5-14.5); WBC 5.6 K/mcL (4.5-11.0)
[2024-06-20 06:20] LABS: ALT/SGPT 28 U/L (<40); AST/SGOT 41 U/L (<32); Albumin 3.7 gm/dL (3.2-5.2); Albumin/Globulin Ratio 1.9 (1.0-2.3); Alkaline Phosphatase 53 U/L (39-117); Bilirubin,Direct 0.3 mg/dL (<0.3); Bilirubin,Total 0.5 mg/dL (0.1-1.0); Blood Urea Nitrogen 13 mg/dL (8-23); Calcium 8.7 mg/dL (8.6-10.4); Carbon Dioxide 26 mmol/L (22-30); Chloride 104 mmol/L (96-108); Glomerular Filtration Rate 82; Glucose 95 mg/dL (70-105); Lactate Dehydrogenase 189 U/L (135-225); Phosphorous 3.5 mg/dL (2.5-4.5); Potassium 3.7 mmol/L (3.3-5.1); Sodium 139 mmol/L (133-145); Triglycerides 57 mg/dL (<150); Uric Acid 4.1 mg/dL (2.5-8.0)
[2024-06-20 08:42] VITALS: TEMP 97.5; O2SAT 99
== END 2024-06-20 10:31 | disposition home or self-care (01) ==
LOC: ED 16:02 → MEDSUR 16:02
PROVIDERS: ADMIT Family Medicine Adult Medicine; ATTEND Family Medicine Adult Medicine